=== PATIENT | male | born 1960 | race Caucasian/White ===

== ENCOUNTER 2016-05-31 16:09 | Emergency (ER) | payer OTHER ==
[~2016-05-31] VITALS: Ht 177.8 cm; Wt 93.1 kg
[~2016-05-31 16:09] MED LIST: Bactrim,Septra DS 80 PO; COMPAZINE10 MG; Cipro; DESYREL 150 MG150 MG PO; DESYREL100 MG PO; Flagyl; Flagyl PO; GABAPENTIN300 MG PO; HYDROCODON-ACE1 EAC7 PO; Habitrol,Nicoderm CQ TD; INDERAL20 MG PO; LAMICTAL25 MG PO; LITHIUM CARBON300 MG PO; LITHIUM CARBON450 MG PO; Levaquin PO; MOVIPREP; NEURONTIN300 MG PO; NOHOMEMEDS; OXYCODONE HCL5 MG PO; Protonix PO; TRAZODONE HCL100 MG PO; ZOLOFT50 M1 PO; celeXA PO
[2016-05-31 17:09] LABS: MCH 32.5 PG (29.0-34.0); MCHC 34.2 G/DL (30.0-36.0); MCV 95.1 FL (86-99); MEAN PLAT.VOLUME 9.4 uM^3 (9.0-12.4); PLATELET COUNT 309 K/uL (156-360); RBC DIS.WIDTH-CV 12.5 % (11.8-14.6); RED BLOOD COUNT 5.26 M/uL (4.00-5.50); WHITE BLOOD COUNT 9.3 K/uL (4.1-10.2)
[2016-05-31 17:25] LABS: CHLORIDE 105 mEq/L (99-109); POTASSIUM 4.4 mEq/L (3.7-5.4); SODIUM 138 mEq/L (136-147)
[2016-05-31 17:26] LABS: GLUCOSE 128 mg/dL (70-99)
[2016-05-31 17:28] LABS: ANION GAP 11 MEQ/L (2-14)
[2016-05-31 17:30] LABS: GFR ESTIMATE (CALCULATED) > 59 mL/min/
[2016-05-31 17:31] LABS: UREA NITROGEN (BUN) 14 mg/dL (9-23)
[2016-05-31 19:11] LABS: LIPASE 118 U/L (1.0-51.0)
[2016-05-31] MEDS ORDERED: ZOFRAN ODT4 MG PO (22:35)
[2016-05-31] MEDS ORDERED: PERCOCET 5/31 TABLET PO (22:35)
[2016-05-31 22:58] VITALS: BP 112/68
== END 2016-05-31 23:00 | disposition home or self-care (01) ==
LOC: EME 16:09
DX: R11.2 Nausea with vomiting, unspecified (principal); R19.7 Diarrhea, unspecified; G89.29 Other chronic pain; R10.32 Left lower quadrant pain; Z85.038 Personal history of other malignant neoplasm of large intestine; I25.2 Old myocardial infarction; Z88.0 Allergy status to penicillin; Z88.1 Allergy status to other antibiotic agents; Z87.891 Personal history of nicotine dependence
CPT/HCPCS: 74177; 80048; 81003; 83690; 85027; 86900; 86901; 93005; 99281; 99285; J2270; J2405; J7030

== ENCOUNTER 2016-06-26 08:54 | Inpatient (IN) | payer OTHER ==
[~2016-06-26] VITALS: Ht 177.8 cm; Wt 99.0 kg
[~2016-06-26 08:54] MED LIST changes: +PERCOCET 5/31 TABLET PO; +ZOFRAN ODT4 MG PO
[2016-06-26 09:49] LABS: BASOPHIL COUNT 0.1 K/uL (0-0.1); EOSINOPHIL (%) 6.3 % (0-5); EOSINOPHIL COUNT 0.4 K/uL (0-0.3); HEMATOCRIT 44.6 % (38.0-50.0); IMMATURE GRANULOCYTE (%) 0.4 % (0.0-0.7); INSTRUMENT ABS NEUTROPHIL CT 4.1 K/uL; LYMPHOCYTE COUNT 1.9 K/uL (1.0-2.8); MCV 97.2 FL (86-99); MONOCYTE (%) 6.8 % (3-12); MONOCYTE COUNT 0.5 K/uL (0-0.8); NEUTROPHIL (%) 58.9 % (45-76); NEUTROPHIL COUNT 4.1 K/uL (1.8-6.4); PLATELET COUNT 246 K/uL (156-360); RBC DIS.WIDTH-CV 12.4 % (11.8-14.6); RBC DIS.WIDTH-SD 44.5 % (39-53); RED BLOOD COUNT 4.59 M/uL (4.00-5.50); WHITE BLOOD COUNT 6.9 K/uL (4.1-10.2)
[2016-06-26 10:11] LABS: ANION GAP 6 MEQ/L (2-14); CHLORIDE 109 MEQ/L (99-109); POTASSIUM 4.2 MEQ/L (3.7-5.4); SAMPLE HEMOLYSIS CHECK 0; SAMPLE ICTERIC CHECK 0; SAMPLE LIPEMIA CHECK 0; SODIUM 139 MEQ/L (136-147)
[2016-06-26 10:21] LABS: GFR ESTIMATE (CALCULATED) > 59 mL/min/; GLUCOSE 136 mg/dL (70-99); SERUM ETHYL ALCOHOL < 10 mg/dL; UREA NITROGEN (BUN) 8 mg/dL (9-23)
[2016-06-26 13:54] VITALS: BP 148/76
[2016-06-26 14:06] VITALS: BP 145/76
[2016-06-26 15:42] VITALS: BP 145/76
[2016-06-27 07:24] VITALS: BP 129/77
[2016-06-27 15:26] VITALS: BP 124/88
[2016-06-28 07:40] VITALS: BP 121/62
[2016-06-28 15:14] VITALS: BP 114/75
[2016-06-29 07:48] VITALS: BP 110/81
[2016-06-29] MEDS ORDERED: BUSPAR10 MG PO (10:44)
[2016-06-29] MEDS ORDERED: MIRTAZAPINE15 M1 PO (10:44)
[2016-06-29] MEDS ORDERED: ONDANSETRON ODT4 MG PO (10:44)
[2016-06-29] MEDS ORDERED: SUMATRIPTAN SUC25 MG PO (12:03)
== END 2016-06-29 12:26 | disposition home or self-care (01) | DRG 885 ==
LOC: EME 08:54 → EDOF 12:17 → 1WEST 12:17
PROVIDERS: Emergency Medicine
DX: F33.2 Major depressive disorder, recurrent severe without psychotic features (principal); R45.851 Suicidal ideations; I25.10 Atherosclerotic heart disease of native coronary artery without angina pectoris; F41.9 Anxiety disorder, unspecified; G43.009 Migraine without aura, not intractable, without status migrainosus; Z88.0 Allergy status to penicillin
CPT/HCPCS: 80048; 81003; 85025; 90839; 97165 GO; 99281; 99285; G0480; J3030

== ENCOUNTER 2016-09-12 23:29 | Emergency (ER) | payer OTHER ==
[~2016-09-12 23:29] MED LIST changes: +BUSPAR10 MG PO; +MIRTAZAPINE15 M1 PO; +ONDANSETRON ODT4 MG PO; +SUMATRIPTAN SUC25 MG PO
[2016-09-14] MEDS ORDERED: SEROQUEL100 MG PO (11:10)
[2016-09-14] MEDS ORDERED: LAMOTRIGINE25 MG PO (11:11)
[2016-09-14] MEDS ORDERED: CLEOCIN300 MG PO (12:59)
[2016-09-14] MEDS ORDERED: ULTRAM50 MG PO (12:59)
[2016-09-14] MEDS ORDERED: ZOFRAN ODT4 MG PO (12:59)
== END 2016-09-13 00:08 | disposition left against medical advice (07) ==
LOC: EME 23:29
DX: H92.09 Otalgia, unspecified ear (principal); J02.9 Acute pharyngitis, unspecified; Z53.21 Procedure and treatment not carried out due to patient leaving prior to being seen by health care provider

== ENCOUNTER 2016-09-14 10:28 | Emergency (ER) | payer OTHER ==
[~2016-09-14] VITALS: Ht 177.8 cm; Wt 97.8 kg
[2016-09-14] MEDS ORDERED: SEROQUEL100 MG PO (11:10)
[2016-09-14] MEDS ORDERED: LAMOTRIGINE25 MG PO (11:11)
[2016-09-14 11:29] LABS: HEMATOCRIT 45.7 % (38.0-50.0); MCH 32.2 PG (29.0-34.0); MCHC 33.7 G/DL (30.0-36.0); MCV 95.4 FL (86-99); MEAN PLAT.VOLUME 9.1 uM^3 (9.0-12.4); PLATELET COUNT 298 K/uL (156-360); RBC DIS.WIDTH-CV 12.1 % (11.8-14.6); RED BLOOD COUNT 4.79 M/uL (4.00-5.50); WHITE BLOOD COUNT 7.4 K/uL (4.1-10.2)
[2016-09-14 11:38] LABS: CHLORIDE 108 mEq/L (99-109); SODIUM 140 mEq/L (136-147)
[2016-09-14 11:40] LABS: GLUCOSE 102 mg/dL (70-99)
[2016-09-14 11:41] LABS: ANION GAP 7 MEQ/L (2-14)
[2016-09-14 11:43] LABS: GFR ESTIMATE (CALCULATED) > 59 mL/min/
[2016-09-14 11:44] LABS: UREA NITROGEN (BUN) 15 mg/dL (9-23)
[2016-09-14 11:51] LABS: TROP-I INTERPRETATION NEGATIVE; TROPONIN-I < 0.01 ng/mL (0.0-0.30)
[2016-09-14] MEDS ORDERED: ULTRAM50 MG PO (12:59)
[2016-09-14] MEDS ORDERED: ZOFRAN ODT4 MG PO (12:59)
[2016-09-14] MEDS ORDERED: CLEOCIN300 MG PO (12:59)
[2016-09-14 13:45] VITALS: BP 140/91
== END 2016-09-14 13:46 | disposition home or self-care (01) ==
LOC: EME 10:28
PROVIDERS: Physician Assistant
DX: K02.9 Dental caries, unspecified (principal); H92.01 Otalgia, right ear; M54.2 Cervicalgia; R22.1 Localized swelling, mass and lump, neck; R11.2 Nausea with vomiting, unspecified; R50.9 Fever, unspecified; I44.0 Atrioventricular block, first degree; Z85.038 Personal history of other malignant neoplasm of large intestine; Z90.49 Acquired absence of other specified parts of digestive tract; Z88.0 Allergy status to penicillin; Z87.891 Personal history of nicotine dependence
CPT/HCPCS: 70491; 71020; 80048; 84484; 85027; 87651 90; 93005; 99281; 99285; J2405; J2765; J3010; J7030

== ENCOUNTER 2016-11-02 11:55 | Emergency (ER) | payer OTHER ==
[~2016-11-02] VITALS: Ht 177.8 cm; Wt 100.4 kg
[~2016-11-02 11:55] MED LIST changes: +CLEOCIN300 MG PO; +LAMOTRIGINE25 MG PO; +SEROQUEL100 MG PO; +ULTRAM50 MG PO
[2016-11-02 12:25] LABS: ADD MIUA? NO; BILIRUBIN NEGATIVE; BLOOD NEGATIVE; GLUCOSE (STRIP) NEGATIVE; KETONES NEGATIVE; LEUKOCYTES NEGATIVE; NITRITE NEGATIVE; PROTEIN (STRIP) NEGATIVE; SPECIFIC GRAVITY 1.016 (1.000-1.030); UROBILINOGEN 0.2 MG/DL (0.2-1.0)
[2016-11-02 12:26] LABS: COLOR LT YELLOW ((YELLOW)); UCUL ADDED? NO
[2016-11-02 13:07] LABS: HEMATOCRIT 45.1 % (38.0-50.0); MCH 32.7 PG (29.0-34.0); MCHC 34.4 G/DL (30.0-36.0); MCV 95.1 FL (86-99); MEAN PLAT.VOLUME 8.7 uM^3 (9.0-12.4); PLATELET COUNT 264 K/uL (156-360); RBC DIS.WIDTH-CV 12.7 % (11.8-14.6); RBC DIS.WIDTH-SD 44.7 % (39-53); RED BLOOD COUNT 4.74 M/uL (4.00-5.50); WHITE BLOOD COUNT 9.2 K/uL (4.1-10.2)
[2016-11-02 13:18] LABS: CHLORIDE 107 mEq/L (99-109); POTASSIUM 4.6 mEq/L (3.7-5.4); SODIUM 139 mEq/L (136-147)
[2016-11-02 13:20] LABS: GLUCOSE 103 mg/dL (70-99)
[2016-11-02 13:22] LABS: ANION GAP 8 MEQ/L (2-14); TOTAL BILIRUBIN 0.2 mg/dL (0.0-1.0)
[2016-11-02 13:24] LABS: ALKALINE PHOSPHATASE 61 IU/L (3-129); GFR ESTIMATE (CALCULATED) > 59 mL/min/
[2016-11-02 13:25] LABS: UREA NITROGEN (BUN) 11 mg/dL (9-23)
[2016-11-02 13:28] LABS: LIPASE 37 U/L (1.0-51.0)
[2016-11-02] MEDS ORDERED: PERCOCET 5/31 TABLET PO (16:51)
[2016-11-02] MEDS ORDERED: REGLAN5 MG PO (16:51)
[2016-11-02 17:06] VITALS: BP 104/68
== END 2016-11-02 17:09 | disposition home or self-care (01) ==
LOC: EME 11:55
DX: K42.9 Umbilical hernia without obstruction or gangrene (principal); R11.2 Nausea with vomiting, unspecified; I25.2 Old myocardial infarction; Z87.891 Personal history of nicotine dependence; Z85.038 Personal history of other malignant neoplasm of large intestine
CPT/HCPCS: 74177; 80053; 81003; 83690; 85027; 99281; 99285; J2270; J2405; J2765; J7030

== ENCOUNTER 2016-11-22 05:08 | Day surgery (SDC) | payer OTHER ==
[~2016-11-22] VITALS: Ht 177.8 cm; Wt 98.1 kg
[~2016-11-22 05:08] MED LIST changes: +INDERAL60 MG PO; +MAXALT5 MG PO; +REGLAN5 MG PO; +ZOFRAN4 MG PO
[2016-11-22 06:04] VITALS: BP 119/81
[2016-11-22 12:07] VITALS: BP 109/69
[2016-11-22 19:00] VITALS: BP 132/76
[2016-11-22 23:25] VITALS: BP 122/74
[2016-11-23 03:05] VITALS: BP 102/59
[2016-11-23 07:28] VITALS: BP 106/66
[2016-11-23] MEDS ORDERED: ZOFRAN ODT4 MG PO (10:09)
[2016-11-23] MEDS ORDERED: PERCOCET 10/1 TABLET PO (10:09)
[2016-11-23 11:40] VITALS: BP 107/60
[2016-11-23 15:21] VITALS: BP 118/71
[2016-11-23 19:29] VITALS: BP 120/73
[2016-11-24] VITALS: BP 143/72
[2016-11-24 03:45] VITALS: BP 114/66
[2016-11-24 07:42] VITALS: BP 111/67
== END 2016-11-24 11:23 | disposition home or self-care (01) ==
LOC: SDC 05:08 → ENRESERV 09:14 → 2EAST 09:14 → 2SOUTH 09:14 → ENRESERV 10:56 → SDC 11:02 → 2EAST 12:04 → SDC 14:11 → ENPENDDIS 11-24 → 2EAST 11-24 11:23
DX: K43.2 Incisional hernia without obstruction or gangrene (principal); K66.0 Peritoneal adhesions (postprocedural) (postinfection); R11.2 Nausea with vomiting, unspecified; Z88.0 Allergy status to penicillin
CPT/HCPCS: 94799; C1781; G0378; J0330; J0690; J1100; J1170; J1580; J1885; J2250; J2405; J2710; J2765; J3010; J3370; J3480; J7050; J7120; S0030

== ENCOUNTER 2016-11-28 04:18 | Inpatient (IN) | payer OTHER ==
[~2016-11-28] VITALS: Ht 177.8 cm; Wt 91.6 kg
[~2016-11-28 04:18] MED LIST changes: +PERCOCET 10/1 TABLET PO
[2016-11-28 05:11] LABS: CHLORIDE 109 mEq/L (99-109); POTASSIUM 4.1 mEq/L (3.7-5.4); SODIUM 137 mEq/L (136-147)
[2016-11-28 05:13] LABS: GLUCOSE 148 mg/dL (70-99)
[2016-11-28 05:14] LABS: ANION GAP 8 MEQ/L (2-14)
[2016-11-28 05:15] LABS: TOTAL BILIRUBIN 0.2 mg/dL (0.0-1.0)
[2016-11-28 05:16] LABS: ALKALINE PHOSPHATASE 60 IU/L (3-129)
[2016-11-28 05:17] LABS: GFR ESTIMATE (CALCULATED) > 59 mL/min/; HEMATOCRIT 40.2 % (38.0-50.0); MCH 32.9 PG (29.0-34.0); MCHC 34.1 G/DL (30.0-36.0); MCV 96.4 FL (86-99); MEAN PLAT.VOLUME 9.1 uM^3 (9.0-12.4); PLATELET COUNT 296 K/uL (156-360); RBC DIS.WIDTH-CV 12.8 % (11.8-14.6); RBC DIS.WIDTH-SD 45.4 % (39-53); RED BLOOD COUNT 4.17 M/uL (4.00-5.50); WHITE BLOOD COUNT 12.2 K/uL (4.1-10.2)
[2016-11-28 05:18] LABS: DIRECT BILIRUBIN 0.1 mg/dL (0.0-0.3); UREA NITROGEN (BUN) 10 mg/dL (9-23)
[2016-11-28 05:20] LABS: LIPASE 33 U/L (1.0-51.0)
[2016-11-28] MEDS ORDERED: LAMICTAL100 MG PO (08:23)
[2016-11-28 09:22] VITALS: BP 113/68
[2016-11-28 12:01] VITALS: BP 121/71
[2016-11-28 16:12] VITALS: BP 124/81
[2016-11-28 19:28] VITALS: BP 113/74
[2016-11-28 23:23] VITALS: BP 115/80
[2016-11-29 08:12] VITALS: BP 119/75
[2016-11-29 11:55] VITALS: BP 106/69
[2016-11-29 16:00] VITALS: BP 113/69
[2016-11-29 19:51] VITALS: BP 109/73
[2016-11-29 23:43] VITALS: BP 102/70
[2016-11-30 03:13] VITALS: BP 110/60
[2016-11-30 07:23] VITALS: BP 115/68
[2016-11-30 11:22] VITALS: BP 107/66
[2016-11-30 13:24] LABS: HEMATOCRIT 41.6 % (38.0-50.0); MCH 32.1 PG (29.0-34.0); MCHC 33.7 G/DL (30.0-36.0); MCV 95.4 FL (86-99); MEAN PLAT.VOLUME 8.7 uM^3 (9.0-12.4); PLATELET COUNT 335 K/uL (156-360); RBC DIS.WIDTH-CV 12.3 % (11.8-14.6); RBC DIS.WIDTH-SD 43.8 % (39-53); RED BLOOD COUNT 4.36 M/uL (4.00-5.50); WHITE BLOOD COUNT 8.2 K/uL (4.1-10.2)
[2016-11-30 13:52] LABS: ANION GAP 7 MEQ/L (2-14); CHLORIDE 103 MEQ/L (99-109); GFR ESTIMATE (CALCULATED) > 59 mL/min/; GLUCOSE 136 mg/dL (70-99); POTASSIUM 4.6 MEQ/L (3.7-5.4); SAMPLE HEMOLYSIS CHECK 0; SAMPLE ICTERIC CHECK 0; SAMPLE LIPEMIA CHECK 0; SODIUM 137 MEQ/L (136-147); UREA NITROGEN (BUN) 7 mg/dL (9-23)
[2016-11-30 16:41] VITALS: BP 106/69
[2016-11-30 19:32] VITALS: BP 111/72
[2016-11-30 23:47] VITALS: BP 120/70
[2016-12-01 03:46] VITALS: BP 114/56
[2016-12-01 08:05] VITALS: BP 95/56
[2016-12-01 10:21] VITALS: BP 95/56
[2016-12-01] MEDS ORDERED: ZOFRAN ODT4 MG PO (11:53)
[2016-12-01] MEDS ORDERED: BENTYL20 MG PO (11:53)
[2016-12-01] MEDS ORDERED: REGLAN10 MG PO (11:53)
[2016-12-01] MEDS ORDERED: PERCOCET 10/1 TABLET PO (11:53)
[2016-12-01] MEDS ORDERED: OMEPRAZOLE40 M1 PO (11:53)
== END 2016-12-01 12:08 | disposition home or self-care (01) | DRG 390 ==
LOC: EME 04:18 → EDOF 06:05 → 3EAST 06:05 → ENRESERV 06:21 → CANRESERV 06:27 → ENRESERV 06:32 → 3EAST 08:41
PROVIDERS: Emergency Medicine; Surgery
DX: K56.609 Unspecified intestinal obstruction, unspecified as to partial versus complete obstruction (principal); I25.10 Atherosclerotic heart disease of native coronary artery without angina pectoris; F31.9 Bipolar disorder, unspecified; F41.9 Anxiety disorder, unspecified; G43.909 Migraine, unspecified, not intractable, without status migrainosus; Z88.0 Allergy status to penicillin; I25.2 Old myocardial infarction; Z85.038 Personal history of other malignant neoplasm of large intestine; Z90.49 Acquired absence of other specified parts of digestive tract; Z87.891 Personal history of nicotine dependence; Z88.1 Allergy status to other antibiotic agents
CPT/HCPCS: 74020; 74176; 80048; 80076; 81003; 83690; 85027; 99281; 99285; J1170; J1650; J2060; J2270; J2405; J3480; J7030; J7120; S0028

== ENCOUNTER 2017-01-27 08:18 | Emergency (ER) | payer OTHER ==
[~2017-01-27] VITALS: Ht 177.8 cm; Wt 101.6 kg
[~2017-01-27 08:18] MED LIST changes: +BENTYL20 MG PO; +LAMICTAL100 MG PO; +OMEPRAZOLE40 M1 PO; +REGLAN10 MG PO
[2017-01-27 08:24] VITALS: BP 148/100
[2017-01-27] MEDS ORDERED: ASPIRIN EC325 MG PO (12:10)
[2017-01-27 12:12] LABS: HEMATOCRIT 47.2 % (38.0-50.0); MCH 32.3 PG (29.0-34.0); MCHC 34.1 G/DL (30.0-36.0); MCV 94.8 FL (86-99); MEAN PLAT.VOLUME 8.9 uM^3 (9.0-12.4); PLATELET COUNT 256 K/uL (156-360); RBC DIS.WIDTH-CV 13.3 % (11.8-14.6); RBC DIS.WIDTH-SD 46.7 % (39-53); RED BLOOD COUNT 4.98 M/uL (4.00-5.50); WHITE BLOOD COUNT 7.9 K/uL (4.1-10.2)
[2017-01-27 12:18] LABS: PROTHROMBIN TIME 11.2 SEC (10.2-12.9)
[2017-01-27 12:23] LABS: CHLORIDE 105 mEq/L (99-109); POTASSIUM 4.5 mEq/L (3.7-5.4); SODIUM 138 mEq/L (136-147)
[2017-01-27 12:25] LABS: GLUCOSE 106 mg/dL (70-99)
[2017-01-27 12:26] LABS: ANION GAP 8 MEQ/L (2-14)
[2017-01-27 12:29] LABS: GFR ESTIMATE (CALCULATED) > 59 mL/min/ (58.99-99999)
[2017-01-27 12:30] LABS: UREA NITROGEN (BUN) 10 mg/dL (9-23)
== END 2017-01-27 12:24 | disposition home or self-care (01) ==
LOC: EME 08:18
PROVIDERS: Nurse Practitioner Family
DX: I80.8 Phlebitis and thrombophlebitis of other sites (principal); I25.2 Old myocardial infarction; R56.9 Unspecified convulsions; F32.9 Major depressive disorder, single episode, unspecified; F41.9 Anxiety disorder, unspecified; Z87.891 Personal history of nicotine dependence; Z85.038 Personal history of other malignant neoplasm of large intestine; Z88.0 Allergy status to penicillin
CPT/HCPCS: 80048; 85027; 85610; 85730; 93971; 99281; 99283

== ENCOUNTER 2017-03-16 16:50 | Emergency (ER) | payer OTHER ==
[~2017-03-16] VITALS: Ht 177.8 cm; Wt 101.6 kg
[~2017-03-16 16:50] MED LIST changes: +ASPIRIN EC325 MG PO
[2017-03-16 17:52] LABS: HEMATOCRIT 41.6 % (38.0-50.0); HEMOGLOBIN 14.6 G/DL (12.5-16.6); MCH 33.6 PG (29.0-34.0); MCHC 35.1 G/DL (30.0-36.0); MCV 95.6 FL (86-99); PLATELET COUNT 303 K/uL (156-360); RBC DIS.WIDTH-CV 13.1 % (11.8-14.6); RBC DIS.WIDTH-SD 46.5 % (39-53); RED BLOOD COUNT 4.35 M/uL (4.00-5.50); WHITE BLOOD COUNT 6.9 K/uL (4.1-10.2)
[2017-03-16 18:08] LABS: ALBUMIN 3.7 g/dL (3.2-4.8); CHLORIDE 109 mEq/L (99-109); POTASSIUM 4.6 mEq/L (3.7-5.4); SODIUM 141 mEq/L (136-147)
[2017-03-16 18:09] LABS: APPEARANCE CLEAR ((CLEAR)); BILIRUBIN NEGATIVE; BLOOD NEGATIVE; COLOR YELLOW ((YELLOW)); GLUCOSE (STRIP) NEGATIVE; KETONES NEGATIVE; LEUKOCYTES NEGATIVE; NITRITE NEGATIVE; PROTEIN (STRIP) NEGATIVE; SPECIFIC GRAVITY 1.014 (1.000-1.030); UCUL ADDED? NO; UROBILINOGEN 0.2 MG/DL (0.2-1.0)
[2017-03-16 18:10] LABS: GLUCOSE 154 mg/dL (70-99); TOTAL PROTEIN 5.8 g/dL (6.4-8.3)
[2017-03-16 18:12] LABS: TOTAL BILIRUBIN 0.1 mg/dL (0.0-1.0)
[2017-03-16 18:14] LABS: ALKALINE PHOSPHATASE 61 IU/L (3-129); CREATININE 0.9 mg/dL (0.6-1.3); GFR ESTIMATE (CALCULATED) > 59 mL/min/ (58.99-99999)
[2017-03-16 18:15] LABS: UREA NITROGEN (BUN) 11 mg/dL (9-23)
[2017-03-16 18:16] LABS: AST (GOT) 14 IU/L (2-34)
[2017-03-16 18:17] LABS: ALT (GPT) 15 IU/L (3-49)
[2017-03-16] MEDS ORDERED: NORCO 5/3251 TABLET PO (19:46)
[2017-03-16] MEDS ORDERED: PERCOCET 5/31 TABLET PO (19:53)
[2017-03-16 19:54] VITALS: BP 151/86
== END 2017-03-16 19:56 | disposition home or self-care (01) ==
LOC: EME 16:50
PROVIDERS: Physician Assistant
DX: K40.90 Unilateral inguinal hernia, without obstruction or gangrene, not specified as recurrent (principal); R73.9 Hyperglycemia, unspecified; K57.30 Diverticulosis of large intestine without perforation or abscess without bleeding; Z85.038 Personal history of other malignant neoplasm of large intestine; Z90.49 Acquired absence of other specified parts of digestive tract; I25.2 Old myocardial infarction; R56.9 Unspecified convulsions; F32.9 Major depressive disorder, single episode, unspecified; F41.9 Anxiety disorder, unspecified; Z88.0 Allergy status to penicillin; Z87.891 Personal history of nicotine dependence
CPT/HCPCS: 74177; 80053; 81003; 85027; 99281; 99285; J7030